=== PATIENT | male | born 1975 | race Asian ===

== ENCOUNTER → 2020-12-09 14:50 | Outpatient (CLI) | payer OTHER, SELFPAY ==
[2020-12-09] MEDS: COVID-19 VACC #1, MRNA(MOD) 100 MCG/0.5 ML VIAL IM (14:58)
== END ==
PROVIDERS: PCP Internal Medicine; Visit Provider Internal Medicine
DX: Z23 Encounter for immunization (principal)
CPT/HCPCS: 0011A; 91301

== ENCOUNTER → 2021-01-06 11:55 | Outpatient (CLI) | payer OTHER, SELFPAY ==
[2021-01-06] MEDS: COVID-19 VACC #2, MRNA(MOD) 100 MCG/0.5 ML VIAL IM (12:04)
== END ==
PROVIDERS: PCP Internal Medicine; Visit Provider Internal Medicine
DX: Z23 Encounter for immunization (principal)
CPT/HCPCS: 0012A; 91301

== ENCOUNTER 2021-03-27 13:16 | Emergency (ER) | payer OTHER, SELFPAY ==
[2021-03-27 13:52] VITALS: BP 122/81; PULSE 85; RESP 18; TEMP 36.6; O2SAT 97; BMI 28.1
[2021-03-27 14:22] LABS: WBC Urine None Seen (0-5/HPF)
[2021-03-27 14:42] LABS: Bacteria Urine Few (2-10); Culture Indicated Urine Cult Not Indicated; RBC Urine 0-1/HPF (0-5/HPF)
--- NOTE | 2021-03-27 16:14 | ED_ITS ---
HPI - GI Bleed General Chief complaint: GI Bleed Stated complaint: bleeding from anus. 3 days Time Seen by Provider: 03/27/21 15:43 Source: patient Mode of arrival: Family Vehicle Limitations: no limitations History of Present Illness HPI Narrative: Patient is a 46-year-old male who presents with rectal bleeding. And is difficult to get crack story but it sounds as though he had bleeding ongoing for the last 3 days. He has had swelling in his buttock off and on and it feels like it just ruptured. He has obvious part of blood on the sheets now. He denies any dizziness or lightheadedness. No nausea or vomiting. He is not on any anti-platelet or anticoagulation medication. Related Data Allergies Allergy/AdvReac Type Severity Reaction Status Date / Time No Known Drug Allergies Allergy Verified 03/27/21 13:52 Review of Systems Review of Systems Narrative: GENERAL: Denies chills, fatigue, malaise, fever, sweats, travel HEENT: Denies sinus pain, ear pain, sore throat, difficulty swallowing, neck pain RESPIRATORY: Denies dyspnea, cough, wheezing, hemoptysis, sputum. CARDIOVASCULAR: Denies chest pain, palpitations, orthopnea, edema GASTROINTESTINAL: see HPI : Denies dysuria, frequency, incontinence, hematuria, urinary retention, flank pain. MUSCULOSKELETAL: Denies weakness, joint pain, or bony pain SKIN: No rash, no erythema, no pruritus NEUROLOGIC: Denies weakness, dizziness, headache, numbness, change in speech, confusion PSYCHIATRIC: No concerning psychosocial issues. 12 point review of systems is negative except for those stated above and HPI Patient History Social History Smoking Status: Former smoker Smoking Status: Former smoker alcohol intake frequency: 0-2 drinks per day Substance Use Type: does not use Exam Initial Vital Signs Initial Vital Signs: Vital Signs Temperature 97.8 F 03/27/21 13:52 Pulse Rate 85 03/27/21 13:52 Respiratory Rate 18 03/27/21 13:52 Blood Pressure 122/81 03/27/21 13:52 Pulse Oximetry 97 03/27/21 13:52 GENERAL: Alert well-appearing 46-year-old male and in no acute distress. HEENT: Head atraumatic,EOMI, pupils reactive, face symmetric, moist mucous membranes CARDIOVASCULAR: Regular rate and rhythm without murmurs, rubs or gallops. RESPIRATORY: Breath sounds equal bilaterally, no wheezes rales or rhonchi. ABDOMEN: Soft, nontender. Normoactive bowel sounds all 4 quadrants. No guarding or rebound. RECTAL: There is actually contusion in the right buttock with of small puncture laceration in the skin that actively oozing blood. Bleeding is controlled with pressure. There is no erythema or induration. No gross pus. EXTREMITIES: Normal range of motion, no clubbing or edema. Neurovascularly intact NEUROLOGICAL: Alert and oriented x4.Normal gait and speech. SKIN: Warm, dry, no laceration, no petechiae, no rashes or lesions. Course Orders Ordered: ED Orders 03/27/21 14:11 Urine Microscopic Stat 03/27/21 16:29 CT pelvis w con Stat Partial Thromboplastin Time Stat Prothrombin Time INR Stat 03/27/21 16:35 Complete Blood Count AUTO DIFF Stat Comprehensive Metabolic Panel Stat Vital Signs Vital signs: Vital Signs - 8 hr 03/27/21 13:52 03/27/21 17:00 03/27/21 18:08 Temperature 97.8 F Pulse Rate 85 72 69 Respiratory Rate 18 14 Blood Pressure 122/81 113/56 L 128/77 Pulse Oximetry 97 99 98 MDM - GI Bleed Lab Data Result diagrams: 03/27/21 16:35 03/27/21 16:35 Labs: Lab Results 03/27/21 03/27/21 03/27/21 Range/Units 14:11 16:35 16:35 WBC 10.9 (4.5-11.0) X10^3/uL RBC 5.38 (4.5-5.9) X10^6/uL Hgb 16.0 (13.5-17.5) g/dL Hct 47.8 (41-53) % MCV 88.8 (80-100) fL MCH 29.8 (26-34) PG MCHC 33.6 (30-36) % RDW 13.1 (11.6-14.8) % Plt Count 260 (150-400) X10^3/uL Neut % (Auto) 75.7 H (50-75) % Lymph % (Auto) 17.9 L (25-40) % Becker % (Auto) 5.1 (3-14) % Eos % (Auto) 0.6 L (2-4) % Baso % (Auto) 0.7 (0-2) % Neut # (Auto) 8200 H (4314-7117) /uL Lymph # (Auto) 1900 (2409-8716) /uL Becker # (Auto) 500 (0-900) /uL Eos # (Auto) 100 (0-450) /uL Baso # (Auto) 100 (0-100) /uL PT (10.1-12.7) SECONDS INR (0.9-1.3) APTT (26.4-36.2) SECONDS Sodium 139 (137-145) mmol/L Potassium 3.9 (3.4-5.1) mmol/L Chloride 101 (98-107) mmol/L Carbon Dioxide 27 (22-32) mmol/L BUN 11 (9-20) mg/dL Creatinine 0.79 (0.66-1.25) mg/dL Estimated GFR > 60.0 (>60) mL/min BUN/Creatinine Ratio 13.9 (6-22) Glucose 145 H (70-100) mg/dL Calcium 10.2 (8.4-10.2) mg/dL Total Bilirubin 0.6 (0.2-1.3) mg/dL AST 31 (17-59) IU/L ALT 37 (<50) IU/L Alkaline Phosphatase 72 (38-126) U/L Total Protein 9.2 H (6.3-8.2) g/dL Albumin 5.0 (3.5-5.0) g/dL Globulin 4.2 H (1.7-4.1) g/dL Albumin/Globulin Ratio 1.2 (1.0-2.8) Urine RBC 0-1/hpf (0-5/HPF) Urine WBC None seen (0-5/HPF) Urine Bacteria Few (2-10) H (None) Ur Culture Indicated? Cult not indicated 03/27/21 Range/Units 18:35 WBC (4.5-11.0) X10^3/uL RBC (4.5-5.9) X10^6/uL Hgb (13.5-17.5) g/dL Hct (41-53) % MCV (80-100) fL MCH (26-34) PG MCHC (30-36) % RDW (11.6-14.8) % Plt Count (150-400) X10^3/uL Neut % (Auto) (50-75) % Lymph % (Auto) (25-40) % Becker % (Auto) (3-14) % Eos % (Auto) (2-4) % Baso % (Auto) (0-2) % Neut # (Auto) (5970-4672) /uL Lymph # (Auto) (9498-7475) /uL Becker # (Auto) (0-900) /uL Eos # (Auto) (0-450) /uL Baso # (Auto) (0-100) /uL PT 11.6 (10.1-12.7) SECONDS INR 1.0 (0.9-1.3) APTT 43 H (26.4-36.2) SECONDS Sodium (137-145) mmol/L Potassium (3.4-5.1) mmol/L Chloride (98-107) mmol/L Carbon Dioxide (22-32) mmol/L BUN (9-20) mg/dL Creatinine (0.66-1.25) mg/dL Estimated GFR (>60) mL/min BUN/Creatinine Ratio (6-22) Glucose (70-100) mg/dL Calcium (8.4-10.2) mg/dL Total Bilirubin (0.2-1.3) mg/dL AST (17-59) IU/L ALT (<50) IU/L Alkaline Phosphatase (38-126) U/L Total Protein (6.3-8.2) g/dL Albumin (3.5-5.0) g/dL Globulin (1.7-4.1) g/dL Albumin/Globulin Ratio (1.0-2.8) Urine RBC (0-5/HPF) Urine WBC (0-5/HPF) Urine Bacteria (None) Ur Culture Indicated? Point of Care Testing Glucose POC 168 Urine Dip Bedside Urine Glucose 1000 mg/dl Bedside Urine Bilirubin - Negative Bedside Urine Ketone - Negative Urine Specific [place] 1.015 Bedside Urine Occult Blood +/- Bedside Urine pH 6.5 Bedside Urine Protein - Negative Bedside Urine Urobilinogen - Negative Bedside Urine Nitrite - Negative Bedside Urine Leukocytes - Negative Esterase Imaging Data CT scan - abdomen/pelvis: Radiologist's Impression: PROCEDURE: CT PELVIS W CON INDICATIONS: ? abscess vs hematoma TECHNIQUE: After the administration of intravenous contrast, 5 mm thick sections acquired from the iliac crests to the symphysis. In this patient, rectal contrast was given. 5 mm coronal and sagittal reformats were acquired. For radiation dose reduction, the following was used: automated exposure control, adjustment of mA and/or kV according to patient size. COMPARISON: None. FINDINGS: Image quality: Excellent. Peritoneum and bowel: Bowel loops demonstrate normal wall thickness and caliber. No free fluid or air. A normal appendix is incidentally noted. Within the right buttock, there is a partially5 seen area of inflammatory change, without a well-defined, drainable abscess. A tiny bubble of gas can be seen on the inferior-most image, as on series 2, image 71. On these images, this process measures up to 4.2 x 1.9 by 4.3 cm, although it is not completely within the field of view of this study. Genitourinary: Bladder wall thickness is normal. Nodes and vessels: No iliac, pelvic, or inguinal adenopathy by size criteria. Iliac vessels demonstrate normal size and enhancement. Bones: No suspicious bony lesions. Miscellaneous: No inguinal hernias. IMPRESSION: Within the perianal region of the right buttock, there is a partially visualized inflammatory change seen, with an apparent tiny bubble of gas (although differential diagnosis includes fat). Please correlate with a potential penetrating injury. Given history, a hematoma is regarded to be most likely. Differential diagnosis includes phlegmon, however. No drainable abscess can be seen. No extravasation of rectal contrast can be seen. Dictated by: Vincent Alvares M.D. on 03/27/2021 at 16:33 MDM Narrative Medical decision making narrative: Patient's story is quite confusing. He denies any trauma or injury. He has an obvious contusion the and bleeding. His rectal is actually negative. Concern for questionable abscess. CT showed some and inflammatory changes but no actual abscess. He has no leukocytosis or fever. Bleeding stopped with pressure packing and gauze. He is hemodynamically stable. I discussed case briefly with surgery who states supportive care only. Discharge Plan Departure Patient Disposition: Home Clinical Impression: Hematoma Instructions: DI for Contusion Activity Restrictions/Additional Instructions: *You have been diagnosed with hematoma *What to do: At this time bleeding is from a contusion on her buttock. There is no sign of abscess or infection. Keep pressure and pad on into bleeding stops. Avoid constipation. *Continue to take medications as directed *Follow up with your primary care provider in 2-3 days *Return to ER if you should have increasing bleeding, swelling, pain, fever or any new, worsening or concerning symptoms Referrals: Abdias Gayle MD [Primary Care Provider] -
--- NOTE | 2021-03-27 16:29 | DI.CT.S_ITS ---
PROCEDURE: CT PELVIS W CON INDICATIONS: ? abscess vs hematoma TECHNIQUE: After the administration of intravenous contrast, 5 mm thick sections acquired from the iliac crests to the symphysis. In this patient, rectal contrast was given. 5 mm coronal and sagittal reformats were acquired. For radiation dose reduction, the following was used: automated exposure control, adjustment of mA and/or kV according to patient size. COMPARISON: None. FINDINGS: Image quality: Excellent. Peritoneum and bowel: Bowel loops demonstrate normal wall thickness and caliber. No free fluid or air. A normal appendix is incidentally noted. Within the right buttock, there is a partially5 seen area of inflammatory change, without a well-defined, drainable abscess. A tiny bubble of gas can be seen on the inferior-most image, as on series 2, image 71. On these images, this process measures up to 4.2 x 1.9 by 4.3 cm, although it is not completely within the field of view of this study. Genitourinary: Bladder wall thickness is normal. Nodes and vessels: No iliac, pelvic, or inguinal adenopathy by size criteria. Iliac vessels demonstrate normal size and enhancement. Bones: No suspicious bony lesions. Miscellaneous: No inguinal hernias. IMPRESSION: Within the perianal region of the right buttock, there is a partially visualized inflammatory change seen, with an apparent tiny bubble of gas (although differential diagnosis includes fat). Please correlate with a potential penetrating injury. Given history, a hematoma is regarded to be most likely. Differential diagnosis includes phlegmon, however. No drainable abscess can be seen. No extravasation of rectal contrast can be seen. Dictated by: Vincent Alvares M.D. on 03/27/2021 at 16:33 Approved by: Vincent Alvares M.D. on 03/27/2021 at 16:39
[2021-03-27 16:46] LABS: Add Manual Diff / Slide Review NO; Basophils Absolute Auto 100 /uL (0-100); Basophils Percent Auto 0.7 % (0-2); Eosinophils Absolute Auto 100 /uL (0-450); Eosinophils Percent Auto 0.6 % (2-4); Hematocrit 47.8 % (41-53); Lymphocytes Absolute Auto 1900 /uL (1100-4500); Lymphocytes Percent Auto 17.9 % (25-40); Mean Corpuscular HGB Conc 33.6 % (30-36); Mean Corpuscular Hemoglobin 29.8 PG (26-34); Mean Corpuscular Volume 88.8 fL (80-100); Monocytes Absolute Auto 500 /uL (0-900); Monocytes Percent Auto 5.1 % (3-14); Neutrophils Absolute Auto 8200 /uL (1500-7000); Neutrophils Percent Auto 75.7 % (50-75); Platelet Count 260 X10^3/uL (150-400); Red Blood Cell Count 5.38 X10^6/uL (4.5-5.9); Red Cell Distribution Width 13.1 % (11.6-14.8); White Blood Cell Count 10.9 X10^3/uL (4.5-11.0)
[2021-03-27 17:00] VITALS: BP 113/56; PULSE 72; RESP 14; O2SAT 99
[2021-03-27 17:00] LABS: Alanine Aminotransferase 37 IU/L (<50); Albumin Globulin Ratio 1.2 (1.0-2.8); Alkaline Phosphatase 72 U/L (38-126); Aspartate Aminotransferase 31 IU/L (17-59); BUN Creatinine Ratio 13.9 (6-22); Bilirubin Total 0.6 mg/dL (0.2-1.3); Blood Urea Nitrogen 11 mg/dL (9-20); Calcium 10.2 mg/dL (8.4-10.2); Carbon Dioxide 27 mmol/L (22-32); Chloride 101 mmol/L (98-107); Estimated Glomerular Filt Rate > 60.0 mL/min (>60); Globulin 4.2 g/dL (1.7-4.1); Glucose 145 mg/dL (70-100); HEMOLYSIS < 15 (0-50); Potassium 3.9 mmol/L (3.4-5.1); Sodium 139 mmol/L (137-145); Total Protein 9.2 g/dL (6.3-8.2)
[2021-03-27 18:08] VITALS: BP 128/77; PULSE 69; O2SAT 98
[2021-03-27 18:49] LABS: Prothrombin Time 11.6 SECONDS (10.1-12.7)
[2021-03-27 18:52] LABS: PTT Partial Thromboplastin Tim 43 SECONDS (26.4-36.2)
[2021-03-29 14:32] LABS: Hemoglobin A1C% w Est Avg Glu 8.2 % (4.0-6.0)
== END 2021-03-27 18:52 | disposition home or self-care (01) ==
PROVIDERS: Emergency Provider Emergency Medicine; PCP Family Medicine
DX: S30.0XXA Contusion of lower back and pelvis, initial encounter (principal)
CPT/HCPCS: 36415; 72193; 80053; 81003; 81015; 82962; 83036; 85025; 85610; 85730; 99284; Q9967

== ENCOUNTER → 2021-05-25 14:40 | Outpatient (CLI) | payer OTHER, SELFPAY ==
--- NOTE | 2021-05-25 16:09 | DIET.PN1 ---
Addendum entered by Lyssa Clark 05/25/21 16:29: Provided appropriate language handouts Original Note: Initial Diabetes Medical Nutrition Therapy Assessment Name: Dick Torre Date: 05/25/21 Time: 3-4p Dx: New diagnosis Type II Diabetes , HLD Provider: Kelsey Gayle Preferred Learning Style: Reading, ESL PMH: HLD, abscess of anal and rectal regions Dick presents today newly diagnosed with T2DM with hgA1c of 8.2%. States he has already made some lifestyle changes, which includes switching to brown rice, reduced rice portions, and overall smaller portions at dinner. Endorses -10# with changes over the last 3-4 weeks. Dick speaks Spanish, though some clarification needed with Spanish as a second language to Pashto. 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 Will often drive to [facility] for food purchases q 2-3 weeks. States they have more food options and better prices. Reports FH of Dm and stroke with father. This is something he is very worried about for himself. Today he has questions about medication, nutrition, and exercise. Diet Recall: 630-730a: bread x 2, cup of noodle with two eggs (70g CHO) 1130a-12p: 1c brown rice with fish or veg soup (45g CHO) 5-6p: use to be 2c white rice with protein ; now: veg soup +/- rice or just fruit alone 3 + pieces(0-90g CHO) 830p: apple or banana or handful chips (15-30g CHO) Anthropometrics: Ht: 5'6 Wt: 173# (reported) Physical Activity: None since covid. use to go to the gym 60+ min multiple times per week. Was walking daily. Main barriers to activity: recent abscess, busy work schedule, driving to [place] on only day off. Self-Monitoring Blood Glucose: None currently. Open to checking to see what his BG look like with Metformin. Today he is asking if he needs to take Metformin indefinitely. Encouraged continued use of Metformin and provided rationale with HgA1c. Discussed potential for BG monitoring to see impact. Pertinent Labs: HgA1c: 8.2% No recent lipids for review. Current Medications: Metformin 500 mg BID without SE Nutrition Rx: Plate Method Nutrition Diagnosis: - Altered nutrition related lab value r/t new dx T2Dm aeb HgA1c of 8.2% - Excessive CHO intake r/t nutrition related knowledge deficit aeb diet recall of meals >45g CHO - Inconsistent protein intake r/t nutrition knowledge deficit aeb diet recall with some meals/snacks low or no protein Intervention: This participant was very receptive. Provided appropriate educational handouts. Discussed the following topics: - Completed intake assessment. Discussed barriers to care. - Pathophysiology of T2DM - HgA1c, its correlation to blood glucose numbers, and rationale for goal - Self-monitoring blood sugars option and need for and rx for supplies (RD/[facility] called provider to consider rx) -Plate Method, impact of macronutrients on blood sugar, carbohydrate counting, pairing macronutrients and spreading out carbohydrates for better blood glucose management - Recommended servings for carbohydrates at meals and snacks - Heart health nutrition in brief - Medication action and SE - Brainstormed appropriate meal plan based on food preferences - Role of physical activity and following provider guidelines for safety - Created SMART goals for patient self-care and success. Goals: - Add protein to snacks and meals - Try to find a time/day to walk - If rx for supplies, bulk picker before next visit Follow-up: DENNIS MONGE follow-up in 3 weeks Lyssa Clark RDN, [facility] Certified Diabetes Care and Elementary Reading Specialist P: [phone] Thank you for this referral
== END ==
PROVIDERS: PCP Family Medicine; Referring Provider Family Medicine; Visit Provider Family Medicine
DX: E11.9 Type 2 diabetes mellitus without complications (principal); E78.5 Hyperlipidemia, unspecified; Z79.84 Long term (current) use of oral hypoglycemic drugs; Z71.3 Dietary counseling and surveillance
CPT/HCPCS: 97802